=== PATIENT | female | born 1970 | race Asian ===

== ENCOUNTER 2021-01-06 14:10 | Outpatient (REF) | payer MEDICAID, SELFPAY ==
--- NOTE | ~2021-01-06 | MM_ITS ---
EXAMINATION: MM SCREENING DIGITAL BREAST TOMOSYNTHESIS, BILATERAL CLINICAL INFORMATION: Screening. Asymptomatic. The lifetime risk of breast cancer based on the Tyrer-Cuzick Model is 9%. COMPARISON: Mammography: 12/17/2015, 06/13/2014 TECHNIQUE: Digital breast tomosynthesis is performed in both the craniocaudal and mediolateral oblique views along with computer-aided detection (CAD). Synthesized 2D images are generated from the tomosynthesis. Additional left exaggerated CC view is provided. FINDINGS: The breasts are heterogeneously dense, which may obscure small masses (ACR BI-RADS breast composition Category c). There is fine fibronodular parenchymal pattern similar to prior studies. Breast tissue composition borders on extremely dense. There are no significant masses, abnormal calcifications, or other abnormalities. The axilla and skin contours are unremarkable. No significant changes. MM/MM tomosynthesis screening BI IMPRESSION: No mammographic evidence of malignancy. ASSESSMENT: BI-RADS 1: Negative RECOMMENDATION: Routine annual mammography screening. This patient's information was entered into a reminder system with a target due date for their next mammogram.
== END 2021-01-06 14:11 | disposition home or self-care (01) ==
LOC: HO.MAMMO 14:10
PROVIDERS: Visit Provider Advanced Practice Midwife
DX: Z12.31 Encounter for screening mammogram for malignant neoplasm of breast (principal)
CPT/HCPCS: 77063; 77067

== ENCOUNTER 2022-06-15 15:30 | Outpatient (REF) | payer MEDICAID, SELFPAY ==
--- NOTE | ~2022-06-15 | MM_ITS ---
EXAMINATION: MM SCREENING DIGITAL BREAST TOMOSYNTHESIS, BILATERAL CLINICAL INFORMATION: Screening. Asymptomatic. The lifetime risk of breast cancer based on the Tyrer-Cuzick Model is 8%. COMPARISON: Mammography: 01/06/2021, 12/17/2015, 06/03/2014 TECHNIQUE: Digital breast tomosynthesis is performed in both the craniocaudal and mediolateral oblique views along with computer-aided detection (CAD). Synthesized 2D images are generated from the tomosynthesis. Additional exaggerated left CC view is provided. FINDINGS: The breasts are heterogeneously dense, which may obscure small masses (ACR BI-RADS breast composition Category c). Breast tissue composition borders on extremely dense. There is a fine fibronodular parenchymal pattern again noted without developing density or architectural abnormality or abnormal calcifications. The axilla and skin contours are unremarkable. No significant changes from prior studies. MM/MM tomosynthesis screening BI IMPRESSION: No mammographic evidence of malignancy. ASSESSMENT: BI-RADS 1: Negative RECOMMENDATION: Routine annual mammography screening. This patient's information was entered into a reminder system with a target due date for their next mammogram.
== END 2022-06-15 15:31 | disposition home or self-care (01) ==
LOC: HO.MAMMO 15:30
PROVIDERS: PCP Internal Medicine; Visit Provider Advanced Practice Midwife
DX: Z12.31 Encounter for screening mammogram for malignant neoplasm of breast (principal)
CPT/HCPCS: 77063; 77067

== ENCOUNTER 2023-09-12 09:52 | Outpatient (REF) | payer MEDICAID, SELFPAY ==
[2023-09-12 14:12] LABS: Appearance Urine Cloudy; Color Urine Yellow; Glucose Urine UA Negative (Negative); Leukocyte Esterase Urine Trace (Negative); Nitrite Urine Negative (Negative); PH 6.5 (5.0-9.0); Specific Gravity - Urine 1.015 (1.005-1.025); UMIC TRIGGER UA YES; Urine Blood Negative (Negative); Urine Ketones Negative (Negative); Urine Protein Negative (Neg-Trace)
[2023-09-12 14:15] LABS: Bacteria Urine 3+ (None Seen); Hyaline Casts Urine 0-2 /LPF (0-2); RBC Urine 0-2 /HPF (0-2); WBC Urine 0-5 /HPF (0-5)
[2023-09-12 14:56] LABS: C Reactive Protein < 0.10 mg/dL (< or = 0.50)
[2023-09-12 14:58] LABS: Erythrocyte Sedimentation Rate 2 MM/HR (0-20)
[2023-09-20 12:43] LABS: Anti Nuclear Antibody Screen NEGATIVE (NEGATIVE)
== END 2023-09-12 09:53 | disposition home or self-care (01) ==
LOC: HO.CHCLDS 09:52
PROVIDERS: Visit Provider Internal Medicine
DX: L21.9 Seborrheic dermatitis, unspecified (principal)
CPT/HCPCS: 36415; 81001; 85652; 86038; 86140

== ENCOUNTER 2024-11-15 16:15 | Outpatient (REF) | payer MEDICAID, SELFPAY ==
--- OUTSIDE RECORDS SUMMARY | 2024-11-15 16:18 | XMS_ITS | Clinical Summary ---
Author Organization [employer] Address [address] [facility] 7t [place] [address] Care Team Providers Care Insole Rasper Name Role Phone Rajat Owen MD Primary Care Provider [phone]- [phone] Allergies No known active allergies Medications diphenhydrAMINE (BENADryl) 25 MG tabletIndications :Seasonal allergies Take 1 tablet (25 mg) by mouth if needed at bedtime for itching or allergies. 30 tablet 03/09/20 23 Active Omeprazole 20 MG tablet delayed-releaseIn dications:Gastroe sophageal reflux disease without esophagitis Take 20 mg by mouth 2 times daily. 60 tablet 11 09/04/19 24 Active albuterol 108 (90 Base) MCG/ACT inhalerIndication s:Viral upper respiratory infection Inhale 2 puffs every 6 (six) hours if needed for wheezing. 18 g 11 01/10/20 24 2024 Active Spacer/Aero-Hold Chamber Bags miscIndications:V iral upper respiratory infection Use as directed with albuterol 1 each 01/10/20 24 Active fluticasone (Flonase) 50 MCG/ACT nasal sprayIndications: Viral upper respiratory infection Administer 1-2 sprays into each nostril Once per day. Shake gently. Before first use, prime pump. After use, clean tip and replace cap. 16 g 2 01/10/20 24 2024 Active hydrocortisone valerate (West-Bishop) 0.2 % ointmentIndicatio ns:Seborrheic dermatitis Apply topically 2 times daily. APPLY TO THE AFFECTED AREA(S) TWICE DAILY 15 g 05/13/20 24 Active CombiPatch 0.05-0.14 MG/DAY APPLY ONE PATCH TWICE A WEEK 8 patch 2 08/09/19 25 Active fexofenadine (Allergy Relief) 180 MG tabletIndications :Allergic rhinitis, unspecified seasonality, unspecified trigger TAKE ONE TABLET BY MOUTH EVERY DAY NEEDED FOR ALLERGY 90 tablet 1 09/12/19 25 Active amLODIPine (Norvasc) 5 MG tabletIndications :Essential hypertension TAKE ONE TABLET BY MOUTH EVERY DAY 90 tablet 3 11/07/19 25 Active predniSONE (Deltasone) 20 MG tabletIndications :Allergic rhinitis, unspecified seasonality, unspecified trigger 2 tabs once a day x 5 days. 10 tablet 11/16/19 25 Active Ketotifen Fumarate (Zaditor) 0.035 % solutionIndicatio ns:Allergic conjunctivitis of both eyes Administer 1 drop into affected eye(s) in the morning and at bedtime. 5 mL 11/16/19 25 Active methocarbamol (Robaxin) 500 MG tabletIndications :Neck pain Take 1 tablet (500 mg) by mouth every 6 (six) hours for 10 days. 40 tablet 11/16/19 25 2024 Active amLODIPine (Norvasc) 5 MG tablet take 1 tablet by oral route every day 01/18/20 22 2024 Discontinued amLODIPine (Norvasc) 5 MG tabletIndications :Essential hypertension TAKE ONE TABLET BY MOUTH EVERY DAY 90 tablet 5 08/14/19 24 2024 Discontinued Active Problems Problem Noted Date Diagnosed Date Seborrheic dermatitis 04/25/2023 Assessment & Plan (04/25/2023 3:54 PM EDT): Patient will be prescribed Lotrimin and Hydrocortisone cream to apply on affected areas. 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 Bloating symptom 03/23/2017 Impacted cerumen 06/28/2016 Encounters Date Type Department Care Team Description 11/15/2024 3:45 PM EDT Office Visit [facility] [address] [place], [place] [phone] Rajat Owen MD Neck pain (Primary Dx); Allergic rhinitis, unspecified seasonality, unspecified trigger; Allergic conjunctivitis of both eyes 11/15/2024 Travel 11/12/2024 Telephone [facility] [address] [place] [address] Rajat Owen MD Nurse Triage 11/05/2024 Refill [facility] [address] [place] [address] Rajat Owen MD Essential hypertension 09/10/2024 Refill [facility] [address] [place] [address] Rajat Owen MD Allergic rhinitis, unspecified seasonality, unspecified trigger from Last 3 Months Immunizations Immunization Administration Dates Next Due Influenza injectable quadriv alent IIV4 with preservative 03/09/2023 Social History Tobacco Use Types Packs/Day Years Used Date Smoking Tobacco: Former Cigarettes Q uit: 2016 Smokeless Tobacco: Never Tobacco Cessation:Counseling Given: Not Answered Depression Answer Date Recorded Patient Health Questionnaire-9 Score 0 09/12/2022 Housing Stability Answer Date Recorded What is your housing situation today? I have soha newman 04/24/[address] you li ve. Do you have problems with any of the following? None of the above 04/24/2023 Food Insecurity Answer Date Recorded Within the past 12 months, y ou worried that your food would run out before you got money to buy more: Never True 04/24/2023 Within the past 12 months,th e food you bought just didn't last and you didn't have enough money to get more: Never True Transportation Answer Date Recorded In the past 12 months, has l ack of transportation kept you from medical appts, meetings, work or from getting things needed for daily living? No 04/24/2023 Utilities Answer Date Recorded In the past 12 months, has t he electric, gas, oil or water [email or web address] threatened to shut off services in your home? No 04/24/2023 Depression Answer Date Recorded Patient Health Questionnaire-2 Score 0 09/12/2022 Comments Unknown Sex and Gender Information Value Date Recorded Sex Assigned at Female 05/02/2022 10:22 AM EDT Legal Sex Female 10:22 AM EDT Gender Identity Female 05/02/2022 10:22 AM EDT Sexual Orientation Straight 05/02/2022 10 :22 AM EDT Last Filed Vital Signs Vital Sign Reading Time Taken Comments Blood Pressure 128/78 11/15/2024 3:48 PM EDT Pulse 94 11/15/2024 3:48 PM EDT Temperature 36.8 ??C (98.3 ??F) 11/15/2024 3:48 PM ED T Respiratory Rate 16 11/15/2024 3:48 PM EDT Oxygen Saturation 98% 11/15/2024 3:48 PM EDT Inhaled Oxygen Concentration - - Weight 52.8 kg (116 lb 6 oz) 11/15/2024 3:48 PM EDT Height 146 cm (4' 9.48 ) 11/15/2024 3:48 PM EDT Body Mass Index 24.76 11/15/2024 3:48 PM EDT Plan of Treatment Health Maintenance Due Date Last Done Comments CT Colonography 1970 FIT DNA/Cologuard 1970 FIT 1970 FOBT 1970 HIV Screening 1970 Lipid Panel 1970 Sigmoidoscopy 1970 Alcohol/Substance Use Screening 1982 Hepatitis C Screening 1988 Hepatitis B Vaccines (1 of 3 - 19+ 3-dose series) 1989 Pneumococcal Vaccine: 50+ Years (1 of 1 - PCV) 2020 Zoster Vaccines (1 of 2) 2020 Colonoscopy 11/30/2022 11/30/2021 Colorectal Cancer Screening 11/30/2022 Depression Screening 09/13/2023 09/12/2022, 09/13/19 23 SDOH Screening 09/13/2023 09/12/2022 COVID-19 Vaccine (3 - season) 2024 09/16/2021, 09/16/2020 Influenza Vaccine (#1) 2024 , 03/15/2022, 04/27/2021, Additional history exists Mammogram 06/15/2024 06/15/2022 Tobacco Screening 01/11/2025 01/12/2024 Cervical Cancer Screening 12/01/2025 HPV/Cotest 12/01/2025 12/01/2020 Pap Smear 12/01/2025 12/01/2020, 12/01/2020 DTaP/Tdap/Td Vaccines (2 - Td or Tdap) 06/28/2026 06/28/2016 RSV Patients and Patients Aged 60 years or older (1 - 1-dose 75+ series) 2045 HIB Vaccines Aged Out No longer eligi ble based on patient's age to complete this topic HPV Vaccines Aged Out No longer eligi ble based on patient's age to complete this topic Hepatitis A Vaccines Aged Out No long er eligible based on patient's age to complete this topic IPV Vaccines Aged Out No longer eligi ble based on patient's age to complete this topic Meningococcal B Vaccine Aged Out No l onger eligible based on patient's age to complete this topic Meningococcal Vaccine Aged Out No inocencia elizabeth eligible based on patient's age to complete this topic RSV under 20 months Aged Out No longe r eligible based on patient's age to complete this topic Rotavirus Vaccines Aged Out No longer eligible based on patient's age to complete this topic Procedures Procedure Name Priority Date/Time Associated Diagnosis Comments COLONOSCOPY Routine 11/30/2021 HPV MRNA E6/E7 Routine 12/01/2020 2:13 PM EDT PAP SMEAR Routine 12/01/2020 12:00 AM EDT from Last 3 Months or Most Recently Relevant to Health Maintenance Results * Colonoscopy (11/30/2021) Colonoscopy Normal Normal Narrative Desirae Khan - 11/30/2021 Recommended 1 year follow up stool obscured vision of significant portions of colon Historical Provider HEALTH MAINTENANCE Final Result * HPV mRNA E6/E7 (12/01/2020 2:13 PM EDT) HPV nRNA E6/E7 Not Detected Not Detected [facility] Comment: Methodology: Equipment Washer-Mediated Amplification This assay detects E6/E7 viral messenger RNA (mRNA) from 14 high-risk HPV types (16,18,31,33,35,39,45,51,52,56,58,59,66,68). ? The analytical performance characteristics of this assay have been determined by [employer]. The modifications have not been cleared or approved by the FDA. This assay has been validated pursuant to the CLIA regulations and is used for clinical purposes. ?? For additional information, please refer to http://education.XMLAW/faq/HHN359h0 (This link if provided for information/ educational purposes only.) 12/01/2020 2:13 PM EDT Meliza Alas [facility] BLOOD ORDERABLES Skye l Result [facility] [address] * Pap Smear (12/01/2020 12:00 AM EDT) Swab Meliza Alas [facility] LAB CYTOLOGY ORDERABLES F inal Result Performing Organization Address [facility] Co de Phone Number [address], [place] [address] from Last 3 Months or Most Recently Relevant to Health Maintenance Insurance [id number] Care Teams Insole Rasper Relationship Specialty Start Date End Date Rajat Owen MD [address] [place] [id number] PCP - General Internal Medicine 07/22/11
--- OUTSIDE RECORDS SUMMARY | 2024-11-15 16:18 | XMS_ITS | Encounter Summary ---
Author Organization [employer] Address [address] [facility] [address] [place] [address] Care Team Providers Care Invasive Cardiologist Name Role Phone Rajat Owen MD Primary Care Provider [phone]- [phone] Reason for Visit * Reason Onset Date Comments Nurse Triage 08/28/2023 Encounter Details Date Type Department Care Team ([facility] st Contact Info) Description 08/28/2023 Telephone [facility] [address] [place], [place] [phone] Rajat Owen MD [address] [place], [place] [phone] Nurse Triage Social History Tobacco Use Types Packs/Day Years Used Date Smoking Tobacco: Former Cigarettes Q uit: 2016 Smokeless Tobacco: Never Depression Answer Date Recorded Patient Health Questionnaire-9 [...] t he electric, gas, oil or water company threatened to shut off services in your home? No 04/24/2023 Depression Answer Date Recorded Patient Health Questionnaire-2 Score 0 09/12/2022 Comments Unknown Sex and Gender Information Value Date Recorded Sex Assigned at Female 05/02/2022 10:22 AM EDT Legal Sex Female 10:22 AM EDT Gender Identity Female 05/02/2022 10:22 AM EDT Sexual Orientation Straight 05/02/2022 10 :22 AM EDT documented as of this encounter Miscellaneous Notes * Telephone Encounter - Parul Ca - 09/01/2023 11:17 AM EST Tc from pt requesting to r/s sick visit 09/04/23, pt would like sooner appt. Appt is still expected. * Telephone Encounter - Lisa Castro RN - 08/28/2023 2:52 PM EST Triage call Pt reports dermatitis remains reddened. Pt has applied creams as ordered. Continues to apply desonide 0.05% every morning and ketoconazole 2% every morning. Last seen 05/17/23. Pt would like to see PCP . Apt with PCP 09/04/23 @ 100pm. Insurance is verified as active prior to booking. No home care advised. Protocol Used: Skin Lesion - Moles or Growths (Adult) Protocol-Based Disposition: See in Office or Video Visit within 3 Days Override (Final) Disposition: See in Office or Video Visit within 2 Weeks Override Reason: No appointments available Video visit not offered Positive Triage Question: * Patient wants to be seen * All higher-acuity triage questions were negative Care Advice Discussed: * Reasons To Call Back - Fever or pain occurs - Any change in the mole or growth - You become worse * Telephone Encounter - Antonietta Dueñas - 08/28/2023 2:25 PM EST Tc from pt stating that she is experiencing symptoms of Allergic Rhinitis and skin lesion of face. Pt started to come back for a few days now Please contact pt @ [phone] documented in this encounter Plan of Treatment Not on file documented as of this encounter Visit Diagnoses Not on filedocumented in this encounter Additional Health Concerns Assessment Noted Time PHQ-9 Depression Total Score: 0 09/13/19 23 1:19 PM EDT documented as of this encounter Care Teams Invasive Cardiologist Relationship Specialty Start Date End Date Rajat Owen MD [address] [place] [id number] PCP - General Internal Medicine 07/22/11 documented as of this encounter
--- OUTSIDE RECORDS SUMMARY | 2024-11-15 16:18 | XMS_ITS | Encounter Summary ---
Author Organization [employer] Address [address] [place] [address] [place] [address] Care Team Providers Care Bulk Plant Supervisor Name Role Phone Rajat Owen MD Primary Care Provider [phone]- [phone] Encounter Details Date Type Department Care Team (Latest Contact Info) Description 04/15/2019 Abstract [facility] CONVERSIONS Dental, Provider, DDS Social History Tobacco Use Types Packs/Day Years Used Date Smoking Tobacco: Never Assessed Comments Unknown Sex and Gender Information Value Date Recorded Sex Assigned at Female 05/02/2022 10:22 AM EDT Legal Sex Female 10:22 AM EDT Gender Identity Female 05/02/2022 10:22 AM EDT Sexual Orientation Straight 05/02/2022 10 :22 AM EDT documented as of this encounter Plan of Treatment Not on file documented as of this encounter Visit Diagnoses Not on filedocumented in this encounter Care Teams Bulk Plant Supervisor Relationship Specialty Start Date End Date Rajat Owen MD [address] [place] [address] PCP - General Internal Medicine 07/22/11 documented as of this encounter
--- OUTSIDE RECORDS SUMMARY | 2024-11-15 16:18 | XMS_ITS | Encounter Summary ---
Author Organization [employer] Address [address] [facility] [address] [place] [address] Care Team Providers Care Sewage Plant Operator Name Role Phone Rajat Owen MD Primary Care Provider [phone]- [phone] Encounter Details Date Type Department Care Team (Late st Contact Info) Description 06/17/2022 Orders Only [facility] [address] [place] [address] Meliza Alas CNM [address] [place], [place] [phone] Social History Tobacco Use Types Packs/Day Years [...] on file documented as of this encounter Procedures Procedure Name Priority Date/Time Associated Diagnosis Comments PAP SMEAR Routine 12/01/2020 12:00 AM EDT documented in this encounter Results * Pap Smear (12/01/2020 12:00 AM EDT) Swab us Meliza Alas CNM LAB CYTOLOGY ORDERABLES F inal Result [facility] [address], [place] [address] documented in this encounter Visit Diagnoses Not on filedocumented in this encounter Care Teams Sewage Plant Operator Relationship Specialty Start Date End Date Rajat Owen MD [address] [place] [id number] PCP - General Internal Medicine 07/22/11 documented as of this encounter
--- OUTSIDE RECORDS SUMMARY | 2024-11-15 16:18 | XMS_ITS | Encounter Summary ---
Author Organization [employer] Address [address] [facility] 7[address] [place] [address] Care Team Providers Care Pharmaceutical Officer Name Role Phone Rajat Owen MD Primary Care Provider [phone] Encounter Details Date Type Department Care Team (Late st Contact Info) Description 05/02/2023 Abstract [facility] MEDICINE [address] [place] [address] Desirae Khan Social History Tobacco Use Types Packs/Day Years Used Date Smoking Tobacco: Former Cigarettes Q uit: 2016 Smokeless Tobacco: Never Depression Answer Date Recorded Patient Health Questionnaire-9 Score 0 09/12/2022 Housing Stability Answer Date Recorded What is your housing situation today? I have sohasushant newman 04/24/[address] you [...] Date/Time Associated Diagnosis Comments COLONOSCOPY Routine 11/30/2021 documented in this encounter Results * Hm Colonoscopy (11/30/2021) Colonoscopy Normal Normal Narrative Desirae Khan - 11/30/2021 Recommended 1 year follow up stool obscured vision of significant portions of colon us Historical Provider HEALTH MAINTENANCE Final Result documented in this encounter Visit Diagnoses Not on filedocumented in this encounter Additional Health Concerns Assessment Noted Time PHQ-9 Depression Total Score: 0 09/13/19 23 1:19 PM EDT documented as of this encounter Care Teams Pharmaceutical Officer Relationship Specialty Start Date End Date Rajat Owen MD [address] [place] [id number] PCP - General Internal Medicine 07/22/11 documented as of this encounter
--- OUTSIDE RECORDS SUMMARY | 2024-11-15 16:18 | XMS_ITS | Encounter Summary ---
Author Organization [employer] Address [address] [place] [address] [address] [place] [address] Care Team Providers Care Lens Assistant Name Role Phone Rajat Owen MD Primary Care Provider [phone] Encounter Details Date Type Department Care Team (Latest Contact Info) Description 12/24/2020 Abstract [facility] CONVERSIONS Dental, Provider, DDS Social History [...] on filedocumented in this encounter Care Teams Lens Assistant Relationship Specialty Start Date End Date Rajat Owen MD [address] [place] [address] PCP - General Internal Medicine 07/22/11 documented as of this encounter
--- OUTSIDE RECORDS SUMMARY | 2024-11-15 16:18 | XMS_ITS | Encounter Summary ---
Author Organization [employer] Address [address] [facility] 7 [place] [address] Care Team Providers Care Jury Consultant Name Role Phone Rajat Owen MD Primary Care Provider [phone] Encounter Details Date Type Department Care Team ([facility] st Contact Info) Description 09/12/2022 Orders Only [facility] [address] [place], [place] [phone] Rajat Owen MD [address] [place], [place] [phone] Bloating symptom (Primary Dx) Social History Tobacco Use Types Packs/Day Years Used Date Smoking Tobacco: Former Cigarettes Q uit: 2016 Smokeless Tobacco: Never Depression Answer Date Recorded Patient Health Questionnaire-9 Score 0 09/12/2022 Depression Answer Date Recorded Patient Health Questionnaire-2 Score 0 09/12/2022 Comments Unknown Sex and Gender Information Value Date Recorded Sex Assigned at Female 05/02/2022 10:22 AM EDT Legal Sex Female 10:22 AM EDT Gender Identity Female 05/02/2022 10:22 AM EDT Sexual Orientation Straight 05/02/2022 10 :22 AM EDT COVID-19 Exposure Response Date Recorded In the last 10 days, have yo u been in contact with someone who was confirmed or suspected to have Coronavirus/COVID-19? No / Unsure 09/12/2022 12:57 PM EDT documented as of this encounter Functional Status * Over the past 2 weeks, how often have you been bothered by any of the following problems? Question Answer Date of Assessment Author Patient Health Questionnaire-2 Score 0 08/31 1:19 PM EDT Alyce Segal [place] * Over the past 2 weeks, how often have you been bothered by any of the following problems? Question Answer Date of Assessment Author Little interest or pleasure in doing things Not at all 09/12/2022 1:19 PM Alcye Liang MA Feeling down, depressed, or hopeless Not at all 09/12/2022 1:19 PM Alyce Liang [place] Trouble falling or staying a sleep, or sleeping too much Not at all 09/12/2022 1:19 PM Alyce Liang MA Feeling tired or having itz le energy Not at all 09/12/2022 1:19 PM Alyce Liang MA Poor appetite or overeating Not at all 09/12/2022 1: 19 PM Alyce Liang MA Feeling bad about yourself - or that you are a failure or have let yourself or your family down Not at all 09/12/2022 1:19 PM Dylan Liang MA Trouble concentrating on thi ngs, such as reading the newspaper or watching television Not at all 09/12/2022 1:19 PM VANESSAT Alyce Segal MA Moving or speaking so slowly that other people could have noticed? Or the opposite - being so fidgety or restless that you have been moving around a lot more than usual. Not at all 09/12/2022 1:19 PM Alyce Liang MA Thoughts that you would be b halley off or hurting yourself in some way Not at all 09/12/2022 1:19 PM VANESSAT Alyce Segal MA Patient Health Questionnaire -9 Score 0 09/12/2022 1:19 PM VANESSAT Alyce Segal MA documented as of this encounter Plan of Treatment Not on file documented as of this encounter Visit Diagnoses Diagnosis Bloating symptom- Primary Flatulence, eructation, and gas pain documented in this encounter Additional Health Concerns Assessment Noted Time PHQ-9 Depression Total Score: 0 09/13/19 23 1:19 PM EDT documented as of this encounter Care Teams Jury Consultant Relationship Specialty Start Date End Date Rajat Owen MD [address] [place] [address] PCP - General Internal Medicine 07/22/11 documented as of this encounter
--- OUTSIDE RECORDS SUMMARY | 2024-11-15 16:18 | XMS_ITS | Encounter Summary ---
Author Organization [employer] Address [address] [facility] 7t [place] [address] Care Team Providers Care Chess Instructor Name Role Phone Rajat Owen MD Primary Care Provider [phone] Reason for Visit * Reason Onset Date Comments Nurse Triage 11/12/2024 Encounter Details Date Type Department Care Team (Late st Contact Info) Description 11/12/2024 Telephone [facility] [address] [place] [address] Rajat Owen MD [address] [place], [place] [phone] Nurse Triage Social History Tobacco Use Types [...] encounter Miscellaneous Notes * Telephone Encounter - Morenita Hall RN - 11/12/2024 1:43 PM EDT called pt to triage, spoke to pt. pt states about 3 days duration of posterior neck pain. pt deniesknown injury, inability to turn head, numbness, fever, illness symptoms, or other associated symptoms or history. given appt Monday with PCP at 3:45 for exam. advised home care: rest, fluids, ice, heat, OTC pain reliever as needed, and call back if worsening or new concerns. pt understands and agrees with plan. insurance verified. Protocol Used: Neck Pain or Stiffness (Adult) Protocol-Based Disposition: See in Office or Video Visit within 3 Days Video visit offer not recorded Positive Triage Question: * Moderate neck pain (e.g., interferes with normal activities like work or school) and present >3 days * All higher-acuity triage questions were negative Care Advice Discussed: * Reassurance and Education - Neck Pain or Stiffness * Pain Medicines * Pain Medicines - Extra Notes and Warnings * Sleep * Activity * Stretching Exercises * Reasons To Call Back - Moderate pain (such as interferes with normal activities) lasts over 3 days - Pain lasts over 2 weeks - Pain begins to shoot into the arms - Numbness or weakness occurs in your arms or legs - You become worse * Telephone Encounter - Anthony Peerz - 11/12/2024 1:36 PM EDT Tc from pt returning call , pt notify she missed call because it was her nap time. [phone] * Telephone Encounter - Domenica James - 11/12/2024 11:43 AM EDT Symptom: Neck Pain - Not From Injury Allergy Outcome: Schedule an urgent appointment (within 4 hours) or talk to a nurse or provider soon Reason: Started within the past 3 days The caller accepted this outcome. documented in this encounter Plan of Treatment Not on file documented as of this encounter Visit Diagnoses Not on filedocumented in this encounter Additional Health Concerns Assessment Noted Time PHQ-9 Depression Total Score: 0 09/13/19 23 1:19 PM EDT documented as of this encounter Care Teams Chess Instructor Relationship Specialty Start Date End Date Rajat Owen MD [address] [place] [phone] PCP - General Internal Medicine 07/22/11 documented as of this encounter
--- OUTSIDE RECORDS SUMMARY | 2024-11-15 16:18 | XMS_ITS | Encounter Summary ---
Author Organization [employer] Address [address] [facility] 7[address] [place] [address] Care Team Providers Care Maintenance Painter Name Role Phone Rajat Owen MD Primary Care Provider [phone] Encounter Details Date Type Department Care Team (Latest Contact Info) Description 11/15/2024 Travel Social History Tobacco Use Types Packs/Day Years [...] documented as of this encounter Care Teams Maintenance Painter Relationship Specialty Start Date End Date Rajat Owen MD [address] [place] [id number] PCP - General Internal Medicine 07/22/11 documented as of this encounter
--- OUTSIDE RECORDS SUMMARY | 2024-11-15 16:18 | XMS_ITS | Encounter Summary ---
Author Organization [employer] Address [address] [place] [phone] Care Team Providers Care Hob Grinder Name Role Phone Rajat Owen MD Primary Care Provider Encounter Details Date Type Department Care Team (Late st Contact Info) Description 06/17/2022 Orders Only [facility] [address] [place], [place] [phone] Rajat Owen MD [address] [place], [place] [phone] Social History Tobacco Use Types Packs/Day Years [...] on filedocumented in this encounter Care Teams Hob Grinder Relationship Specialty Start Date End Date Rajat Owen MD [address] [place] [address] PCP - General Internal Medicine 07/22/11 documented as of this encounter
--- OUTSIDE RECORDS SUMMARY | 2024-11-15 16:18 | XMS_ITS | Encounter Summary ---
Author Organization [employer] Address [address] [facility] 7 [place] [address] Care Team Providers Care Node Js Developer Name Role Phone Rajat Owen MD Primary Care Provider [phone] Reason for Visit * Reason Comments Neck Pain Encounter Details Date Type Department Care Team (Latest Contact Info) Description 11/15/2024 3:45 PM EDT Office Visit [facility] [address] [place], [place] [phone] Rajat Owen MD [address] [place], [place] [phone] Neck pain (Primary Dx); Allergic rhinitis, unspecified seasonality, unspecified trigger; Allergic conjunctivitis of both eyes Social History Tobacco Use Types Packs/Day Years Used Date Smoking Tobacco: Former Cigarettes Q uit: 2016 Smokeless Tobacco: Never Depression Answer Date Recorded Patient Health Questionnaire-9 Score 0 09/12/2022 Housing Stability Answer Date Recorded What is your housing situation today? I have soha paty 04/24/[address] you li [...] AM EDT documented as of this encounter Last Filed Vital Signs Vital Sign Reading [...] Mass Index 24.76 11/15/2024 3:48 PM EDT documented in this encounter Plan of Treatment Scheduled Orders Name Type Priority Associated Diagnoses Orde r Schedule XR Cervical Spine 2-3 Views Imaging Routine Neck pain Expected: 11/15/2024, Expires: 11/15/2025 CBC auto differential Lab Routine Allergic rhinitis, unspecified seasonality, unspecified trigger Allergic conjunctivitis of both eyes Expected: 11/15/2024 (Approximate), Expires: 11/15/2025 IgE Antibody (Anti-IgE IgG) Lab Routine Allergic rhinitis, unspecified seasonality, unspecified trigger Allergic conjunctivitis of both eyes Expected: 11/15/2024 (Approximate), Expires: 11/15/2025 documented as of this encounter Visit Diagnoses Diagnosis Neck pain- Primary Cervicalgia Allergic rhinitis, unspecified seasonality, unspecified trigger Allergic conjunctivitis of both eyes Other chronic allergic conjunctivitis documented in this encounter Additional Health Concerns Assessment Noted Time PHQ-9 Depression Total Score: 0 09/13/19 23 1:19 PM EDT documented as of this encounter Care Teams Node Js Developer Relationship Specialty Start Date End Date Rajat Owen MD [address] [place] [phone] PCP - General Internal Medicine 07/22/11 documented as of this encounter
--- OUTSIDE RECORDS SUMMARY | 2024-11-15 16:18 | XMS_ITS | Encounter Summary ---
Author Organization [employer] Address [address] [place] [address] 7 [place] [address] Care Team Providers Care Clinical Quality Rn Name Role Phone Rajat Owen MD Primary Care Provider [phone] Encounter Details Date Type Department Care Team (Latest Contact Info) Description 01/21/2021 Abstract [facility] Dental, Provider, DDS Social History Tobacco [...] on filedocumented in this encounter Care Teams Clinical Quality Rn Relationship Specialty Start Date End Date Rajat Owen MD [address] [place] [address] PCP - General Internal Medicine 07/22/11 documented as of this encounter
[2024-11-15 17:46] LABS: MANUAL DIFF FLAG NO
[2024-11-15 18:13] LABS: Basophils Absolute Auto 0.1 X10*3/uL (0.0-0.2); Basophils Percent Auto 1.1 % (0-2); Eosinophils Absolute Auto 0.3 X10*3/uL (0.0-0.4); Eosinophils Percent Auto 4.5 % (0-4); Hematocrit 38.6 % (37.0-47.0); Hemoglobin 13.1 g/dl (12.0-16.0); Imm Gran Abs Auto 0.01 X10*3/uL (0.00-0.03); Imm Gran Pct Auto 0.2 % (0.0-0.4); Lymphocytes Absolute Auto 2.1 X10*3/uL (1.2-4.9); Lymphocytes Percent Auto 37.8 % (20-40); Mean Corpuscular HGB Conc 33.9 g/dl (31.0-35.0); Mean Corpuscular Hemoglobin 28.7 pg (27.0-33.0); Mean Corpuscular Volume 84.6 fL (80.0-98.0); Mean Platelet Volume 9.4 fL (9.4-12.3); Monocytes Absolute Auto 0.4 X10*3/uL (0.1-1.2); Monocytes Percent Auto 6.5 % (2-11); Neutrophils Absolute Auto 2.8 x10*3/uL (2.0-8.3); Neutrophils Percent Auto 49.9 % (45-73); Platelet Count 280 X10*3/uL (160-400); Red Blood Count 4.56 X10*6/uL (4.20-5.50); Red Cell Distribution Width 12.3 % (11.0-16.0); White Blood Count 5.6 X10*3/uL (4.8-10.8)
[2024-11-21 00:29] LABS: IgE Antibody (Anti-IgE IgG) 19 ng/mL (<168)
== END 2024-11-15 16:16 | disposition home or self-care (01) ==
LOC: HO.CHCLDS 16:15
PROVIDERS: Visit Provider Internal Medicine
DX: J30.9 Allergic rhinitis, unspecified (principal); H10.13 Acute atopic conjunctivitis, bilateral
CPT/HCPCS: 36415; 83520; 85025

== ENCOUNTER 2024-11-26 11:06 | Outpatient (REF) | payer BC, SELFPAY ==
--- NOTE | ~2024-11-26 | XR_ITS ---
CLINICAL HISTORY: neck pain --- Additional Notes or Special Instructions: wo 3 views cervical spine Comparison: None Findings: Normal alignment. No acute fractures or dislocation. No significant degenerative change. No prevertebral soft tissue swelling. IMPRESSION: No acute findings. This document has been electronically signed by: Mo Breen MD on 11/27/2024 11:15:35
--- OUTSIDE RECORDS SUMMARY | 2024-11-26 11:56 | XMS_ITS | Clinical Summary ---
Author Organization [employer] Address [address] [facility] 7t [place] [address] Care Team Providers Care Brinell Tester Name Role Phone Rajat Owen MD Primary Care Provider [phone] Allergies No known active allergies Medications diphenhydrAMINE [...] for 10 days. 40 tablet 11/16/19 25 Active amLODIPine (Norvasc) 5 MG tablet take [...] Encounters Date Type Department Care Team Description 11/21/2024 Results Follow-Up [facility] MEDIC[facility] [address] [place] [address] Tabatha Denise, TRAVIS CBC auto differential, IgE Antibody (Anti-IgE IgG) 11/21/2024 Orders Only [facility] [address] [place] [address] Rajat Owen MD Allergic rhinitis, unspecified seasonality, unspecified trigger (Primary Dx); Allergic conjunctivitis of both eyes 11/15/2024 3:45 PM EDT Office Visit [facility] [address] [place] [address] Rajat Owen MD Neck pain (Primary Dx); Allergic rhinitis, unspecified seasonality, unspecified trigger; Allergic conjunctivitis of both eyes 11/15/2024 Travel 11/12/2024 Telephone [facility] [address] [place] [address] Rajat Owen MD Nurse Triage 11/05/2024 Refill [facility] [address] [place] [address] Rajat Owen MD Essential hypertension 09/10/2024 Refill [facility] [address] [place], [place] [phone] Rajat Owen MD Allergic rhinitis, unspecified seasonality, [...] Screening 1970 Lipid Panel 1970 Sigmoidoscopy 1970 Disability Screening 1970 Alcohol/Substance Use Screening 1982 Hepatitis C [...] 2024 09/16/2021, 09/16/2020 Influenza Vaccine (#1) 2024 3, 03/15/2022, 04/27/2021, Additional history exists Mammogram 06/15/2024 06/15/2022 Tobacco Screening 11/15/2025 11/15/2024 Cervical Cancer Screening 12/01/2025 HPV/Cotest 12/01/2025 12/01/2020 [...] Procedure Name Priority Date/Time Associated Diagnosis Comments IGE ANTIBODY (ANTI IGE IGG) Routine 11/15/2024 4:16 PM EDT Allergic rhinitis, unspecified seasonality, unspecified trigger Allergic conjunctivitis of both eyes CBC WITH AUTO DIFFERENTIAL Routine 11/15/2024 4:16 PM EDT Allergic rhinitis, unspecified seasonality, unspecified trigger Allergic conjunctivitis of both eyes HM COLONOSCOPY Routine 11/30/2021 HPV MRNA E6/E7 Routine 12/01/2020 2:13 PM EDT PAP SMEAR Routine 12/01/2020 12:00 AM EDT from Last 3 Months or Most Recently Relevant to Health Maintenance Results * IgE Antibody (Anti-IgE IgG) (11/15/2024 4:16 PM EDT) Pathologist [facility] IgE Antibody (Anti-IgE IgG) 19 <168 ng/mL [facility] Comment:This test was develo ped and its analytical performancecharacteristics have been determined by [employer].It has not been cleared or approved by the FDA. This assayhas been validated pursuant to the CLIA regulations and isused for clinical purposes.THIS TEST WAS PERFORMED AT:[facility] [id number] [facility] [place] [address]WOYCDMJ WHITFIELD MD,PHD,PRINCESS Blood Venous blood specimen / Unknown 11/15/2024 4:16 PM EDT 11/15/2024 5:45 PM EDT Rajat Owen MD LAB BLOOD ORDERABLES Final Result [facility] [address] [place] [phone] * (ABNORMAL) CBC auto differential (11/15/2024 4:16 PM EDT) Pathologist [facility] White Blood Count 5.6 4.8 - 10.8 X10*3/uL [facility] Red Blood Count 4.56 4.20 - 5.50 X10*6/uL [facility] Hemoglobin 13.1 12.0 - 16.0 g/dl [facility] Hematocrit 38.6 37.0 - 47.0 % [facility] Mean Corpuscular Volume 84.6 80.0 - 98.0 fL [facility] Mean Corpuscular Hemoglobin 28.7 27.0 - 33.0 pg [facility] Mean Corpuscular HGB Conc 33.9 31.0 - 35.0 g/dl [facility] Red Cell Distribution Width 12.3 11.0 - 16.0 % [facility] Platelet Count 280 160 - 400 X10*3/uL [facility] Mean Platelet Volume 9.4 9.4 - 12.3 fL [facility] Neutrophils Percent Auto 49.9 45 - 73 % [facility] Imm Gran Pct Auto 0.2 0.0 - 0.4 % [facility] Lymphocytes Percent Auto 37.8 20 - 40 % [facility] Monocytes Percent Auto 6.5 2 - 11 % [facility] Eosinophils Percent Auto 4.5(H) 0 - 4 % [facility] Basophils Percent Auto 1.1 0 - 2 % [facility] NRBC Pct Auto 0.0 0.0 - 0.2 /100WBC [facility] Neutrophils Absolute Auto 2.8 2.0 - 8.3 x10*3/uL [facility] Imm Gran Abs Auto 0.01 0.00 - 0.03 X10*3/uL [facility] Lymphocytes Absolute Auto 2.1 1.2 - 4.9 X10*3/uL [facility] Monocytes Absolute Auto 0.4 0.1 - 1.2 X10*3/uL [facility] Eosinophils Absolute Auto 0.3 0.0 - 0.4 X10*3/uL [facility] Basophils Absolute Auto 0.1 0.0 - 0.2 X10*3/uL [facility] NRBC Abs Auto 0.000 0.0 - 0.012 X10*3/uL [facility] Blood Venous blood specimen / Unknown 11/15/2024 4:16 PM EDT 11/15/2024 5:45 PM EDT Rajat Owen MD LAB BLOOD ORDERABLES Final Result [facility] [address] [place] [phone] * Colonoscopy (11/30/2021) Colonoscopy Normal Normal Narrative Desirae Khan - 11/30/2021 Recommended 1 year follow up stool obscured vision of significant portions of colon Historical Provider MD HEALTH MAINTENANCE Final Result * HPV mRNA E6/E7 (12/01/2020 2:13 PM EDT) HPV nRNA E6/E7 Not Detected Not Detected [facility] Comment: Methodology: Ophthalmic Surgical Assistant-Mediated Amplification This assay detects E6/E7 viral messenger RNA (mRNA) from 14 high-risk HPV types (16,18,31,33,35,39,45,51,52,56,58,59,66,68). ? The analytical performance characteristics of this assay have been determined by [employer]. The modifications have not been cleared or approved by the FDA. This assay has been validated pursuant to the CLIA regulations and is used for clinical purposes. ?? For additional information, please refer to http://education.[employer]/faq/JHE560m6 (This link if provided for information/ educational purposes only.) 12/01/2020 2:13 PM EDT Meliza Alas [facility] LAB BLOOD ORDERABLES Skye l Result [facility] [address] * Pap Smear (12/01/2020 12:00 AM EDT) Swab Meliza Alas [facility] CYTOLOGY ORDERABLES F inal Result [address], [facility], [place] [phone] from Last 3 Months or Most Recently Relevant to Health Maintenance Insurance [id number] PARTIAL [facility] [employer]ER[employer] Care Teams Brinell Tester Relationship Specialty Start Date End Date Rajat Owen MD [address] [place] [phone] PCP - General Internal Medicine 07/22/11
== END 2024-11-26 11:07 | disposition home or self-care (01) ==
LOC: HO.XRAY 11:06
PROVIDERS: PCP Internal Medicine; Visit Provider Internal Medicine
DX: M54.2 Cervicalgia (principal)
CPT/HCPCS: 72040

== ENCOUNTER → 2024-11-26 11:11 | Outpatient (BNV) | payer MEDICAID, SELFPAY | PROVIDERS: PCP Internal Medicine; Visit Provider Radiology Diagnostic Radiology | DX: M54.2 Cervicalgia (principal) | CPT/HCPCS: 72040 ==